=== PATIENT | female | born 1955 | race Caucasian/White ===

== ENCOUNTER 2018-12-24 01:06 | Inpatient (IN) | payer MEDICARE ==
[~2018-12-24] VITALS: Ht 162.6 cm; Wt 107.7 kg
[~2018-12-24 01:06] MED LIST: LEVO125T PO; MAGN420T PO; METO25TA35 PO; QUET25TA5 PO
--- NOTE | 2018-12-24 01:21 | NUR ---
PT BIB EMS WITH C/O UNRESPONSIVE AT HOME, EMS FOUND PT ALOC BUT BECAME A AND O X4 WITH THEIR O2, PT HAVING PROBLEMS WITH O2 CONCENTRATOR, PT IS A AND O X 4 AND TALKING IN FULL SENTENCES
[2018-12-24] MEDS ORDERED: ALBUTEROL/IPRATROPIUM 2.5MG/0.5MG, 3 ML NPPB ONE (01:30)
[2018-12-24] MEDS ORDERED: ALBUTEROL SULFATE 2.5 MG/3 ML NPPB ONE (01:30)
--- NOTE | 2018-12-24 01:30 | NUR ---
PT MOVED TO T 4 AND PLACED ON BI PAP PER MD REQUEST
[2018-12-24] MEDS ORDERED: ALBUTEROL/IPRATROPIUM 2.5MG/0.5MG, 3 ML ONE (01:37)
[2018-12-24] MEDS ORDERED: ALBU10PO INH (01:48)
[2018-12-24] MEDS ORDERED: AMOX-291 PO (01:48)
[2018-12-24] MEDS ORDERED: DICL1KIT14 TP (01:49)
[2018-12-24 01:50] LABS: MEAN CORPUSCULAR HEMOGLOBIN 37.3 pg (27.0-34.8); MEAN CORPUSCULAR HGB CONC 33.7 g/dL (32.4-35.8); MEAN CORPUSCULAR VOLUME 110.4 fL (80-100); MEAN PLATELET VOLUME 8.4 fL (7.4-10.4); PLATELET COUNT 133 x10^3/uL (130-400); RED BLOOD COUNT 3.13 x10^6/uL (3.82-5.3); RED CELL DISTRIBUTION WIDTH 17.1 % (9.6-15.2)
[2018-12-24] MEDS ORDERED: FURO40SO5 PO (01:51)
[2018-12-24] MEDS ORDERED: SERT-177 PO (01:53)
[2018-12-24] MEDS ORDERED: SPIR25TA5 PO (01:54)
[2018-12-24] MEDS ORDERED: TIOT18CA INH (01:57)
--- NOTE | 2018-12-24 02:00 | NUR ---
pt resting in nad tolerating bi pap well
[2018-12-24 02:09] LABS: ALANINE AMINOTRANSFERASE 12 U/L (12-78); ALBUMIN 2.7 g/dL (3.4-5.0); ALKALINE PHOSPHATASE 88 U/L (45-117); ANION GAP 11 mmol/L (5-15); BILIRUBIN,TOTAL 0.9 mg/dL (0.2-1.0); CALCIUM 9.4 mg/dL (8.5-10.1); CHLORIDE 91 mmol/L (98-107); CREATININE 1.21 mg/dL (0.55-1.02); TOTAL PROTEIN 6.9 g/dL (6.4-8.2); TROPONIN I 0.017 ng/mL (0.000-0.045)
[2018-12-24 02:10] LABS: BASOPHILS # (AUTO) 0.04 x10^3/uL (0-0.1); BASOPHILS % (AUTO) 1 % (0-1); EOSINOPHILS # (AUTO) 0.06 x10^3/uL (0-0.4); EOSINOPHILS % (AUTO) 1 % (1-7); LYMPHOCYTES # (AUTO) 0.29 x10^3/uL (1-3.4); LYMPHOCYTES % (AUTO) 5 % (22-44); MD SCAN; MONOCYTES # (AUTO) 0.57 x10^3/uL (0.2-0.8); MONOCYTES % (AUTO) 9 % (2-9); NEUTROPHILS # (AUTO) 5.33 x10^3/uL (1.8-6.8); NEUTROPHILS % (AUTO) 85 % (42-75)
[2018-12-24] MEDS ORDERED: LINEZOLID PMX 600MG/300ML 300 ML IV SCH ×2 (02:30→04:00)
[2018-12-24] MEDS ORDERED: methylPREDNISolone SOD SUCC 125 MG/2 ML IVPush SCH (02:30)
[2018-12-24] MEDS ORDERED: FUROSEMIDE 40 MG/4 ML IV ONE (02:30)
[2018-12-24] MEDS ORDERED: CEFEPIME 2 GM in DEXTROSE 5% 100 ML IV ONE (02:30)
[2018-12-24] MEDS ORDERED: POTASSIUM CHLORIDE 20 MEQ in SODIUM CHLORIDE 0.9% 250 ML IV ONE (02:30)
[2018-12-24] MEDS ORDERED: methylPREDNISolone SOD SUCC 125 MG/2 ML ONE (02:31)
[2018-12-24] MEDS ORDERED: FUROSEMIDE 40 MG/4 ML ONE (02:31)
--- NOTE | 2018-12-24 03:29 | NUR ---
changed pt for stool placed purwick to suction meds per oct in nad
[2018-12-24] MEDS ORDERED: LIDOCAINE-MPF 1%, 2ML ENDO PRN (03:30)
[2018-12-24] MEDS ORDERED: LACTULOSE 20 GM/30 ML UDC NG PRN (03:30)
[2018-12-24] MEDS ORDERED: PHARMACY MAY ADJ FOR RENAL FX MC SCH (03:30)
[2018-12-24] MEDS ORDERED: BISACODYL 10 MG SUPP PR PRN (03:30)
[2018-12-24] MEDS ORDERED: SENNA 176 MG/5 ML ORAL SOL NG PRN (03:30)
[2018-12-24] MEDS ORDERED: FENTANYL PF 100 MCG/2ML IVPush PRN (03:30)
[2018-12-24] MEDS ORDERED: ACETAMINOPHEN 325 MG TABLET PO PRN (03:30)
[2018-12-24] MEDS ORDERED: SENNA/DOCUSATE TABLET NG PRN (03:30)
[2018-12-24] MEDS ORDERED: HEPARIN 5,000 UNITS/ML, 1ML SQ SCH (03:30)
[2018-12-24] MEDS: ALBUTEROL/IPRATROPIUM 2.5MG/0.5MG, 3 ML INLINE SCH ×6 (03:30→22:25)
[2018-12-24] MEDS ORDERED: hydrALAzine 20 MG/ML, 1ML IVPush PRN (03:30)
[2018-12-24] MEDS ORDERED: POLYETHYLENE GLYCOL 17 GM PACKET PO PRN (03:30)
--- NOTE | 2018-12-24 03:30 | NUR ---
awaiting admit bed
[2018-12-24 03:59] LABS: INTERNATIONAL NORMALIZED RATIO 1.09 (0.93-1.1); PROTHROMBIN TIME 11.4 Seconds (9.6-11.5)
[2018-12-24] MEDS ORDERED: PIPERACILLIN/TAZO/PMX 3.375GM 50 ML IV SCH (04:00)
[2018-12-24 04:04] LABS: TROPONIN I 0.087 ng/mL (0.000-0.045)
--- NOTE | 2018-12-24 04:06 | NUR ---
report to [facility] chun to icu with tech
[2018-12-24 04:26] LABS: HEMOGLOBIN A1C 5.2 % (4.2-6.3)
[2018-12-24 04:27] LABS: FREE T4 (FREE THYROXINE) 1.43 ng/dL (0.76-1.46)
[2018-12-24] MEDS ORDERED: IPRATROPIUM 0.5 MG/2.5 ML INHA NPPB SCH (06:00)
[2018-12-24] MEDS: BUDESONIDE 0.5 MG/2 ML INHA NPPB SCH ×2 (06:37→18:52)
[2018-12-24] MEDS: HEPARIN 5,000 UNITS/ML, 1ML SQ SCH ×3 (06:41→21:03)
[2018-12-24] MEDS: LEVOTHYROXINE 125 MCG TABLET PO SCH (06:41)
[2018-12-24 06:42] LABS: FOLATE LEVEL > 20.0 ng/mL (3.1-17.5)
[2018-12-24] MEDS: SODIUM CHLORIDE 0.9% 1,000 ML IV SCH (06:42)
[2018-12-24] MEDS: FAMOTIDINE 20 MG/2 ML IV SCH ×2 (07:30→19:48)
[2018-12-24] MEDS: SPIRONOLACTONE 25 MG TABLET PO SCH (07:30)
[2018-12-24] MEDS: FUROSEMIDE 40 MG/4 ML IV SCH ×2 (07:30→17:37)
[2018-12-24] MEDS: METOPROLOL TARTRATE 25 MG TABLET PO SCH ×2 (07:31→21:03)
[2018-12-24] MEDS: SERTRALINE 50MG TABLET PO SCH (07:40)
[2018-12-24] MEDS ORDERED: MUPIROCIN OINT 2%, 22GM TP SCH (09:00)
[2018-12-24] MEDS: CEFEPIME 1 GM in DEXTROSE 5% 50 ML IV SCH ×2 (10:03→19:47)
[2018-12-24] MEDS: methylPREDNISolone SOD SUCC 125 MG/2 ML IVPush SCH ×2 (10:03→17:37)
[2018-12-24 11:10] LABS: TROPONIN I 0.183 ng/mL (0.000-0.045)
[2018-12-24] MEDS: NEOSPORIN OINT, 15GM TP SCH ×2 (11:49→21:04)
[2018-12-24] MEDS: LINEZOLID PMX 600MG/300ML 300 ML IV SCH (15:23)
[2018-12-24] MEDS ORDERED: POTASSIUM CHLORIDE 40 MEQ in SODIUM CHLORIDE 0.9% 500 ML IV ONE (16:30)
[2018-12-24] MEDS ORDERED: POTASSIUM CHLORIDE 20 MEQ TAB.ER.PRT ONE (17:31)
[2018-12-24] MEDS ORDERED: POTASSIUM CHLORIDE 20 MEQ TAB.ER.PRT PO ONE (18:00)
[2018-12-25] MEDS: methylPREDNISolone SOD SUCC 125 MG/2 ML IVPush SCH ×3 (02:04→18:09)
[2018-12-25] MEDS: ALBUTEROL/IPRATROPIUM 2.5MG/0.5MG, 3 ML INLINE SCH ×6 (02:29→22:00)
[2018-12-25] MEDS: LINEZOLID PMX 600MG/300ML 300 ML IV SCH ×2 (03:23→16:00)
[2018-12-25 04:00] VITALS: BP 130/69
[2018-12-25] MEDS: CEFEPIME 1 GM in DEXTROSE 5% 50 ML IV SCH ×3 (05:33→19:48)
[2018-12-25 05:59] LABS: MEAN CORPUSCULAR HEMOGLOBIN 37.4 pg (27.0-34.8); MEAN CORPUSCULAR VOLUME 109.9 fL (80-100); MEAN PLATELET VOLUME 8.8 fL (7.4-10.4); PLATELET COUNT 154 x10^3/uL (130-400); RED BLOOD COUNT 2.81 x10^6/uL (3.82-5.3); RED CELL DISTRIBUTION WIDTH 16.9 % (9.6-15.2)
[2018-12-25] MEDS: HEPARIN 5,000 UNITS/ML, 1ML SQ SCH ×3 (06:05→20:41)
[2018-12-25] MEDS: LEVOTHYROXINE 125 MCG TABLET PO SCH (06:05)
[2018-12-25 06:09] LABS: ALANINE AMINOTRANSFERASE 11 U/L (12-78); ALBUMIN 2.6 g/dL (3.4-5.0); ANION GAP 7 mmol/L (5-15); CALCIUM 8.6 mg/dL (8.5-10.1); CHLORIDE 91 mmol/L (98-107); CREATININE 1.39 mg/dL (0.55-1.02)
[2018-12-25 06:23] LABS: BASOPHILS # (AUTO) 0.15 x10^3/uL (0-0.1); BASOPHILS % (AUTO) 3 % (0-1); EOSINOPHILS % (AUTO) 0 % (1-7); LYMPHOCYTES # (AUTO) 0.13 x10^3/uL (1-3.4); LYMPHOCYTES % (AUTO) 3 % (22-44); MD SCAN; MONOCYTES # (AUTO) 0.15 x10^3/uL (0.2-0.8); MONOCYTES % (AUTO) 3 % (2-9); NEUTROPHILS # (AUTO) 4.45 x10^3/uL (1.8-6.8); NEUTROPHILS % (AUTO) 91 % (42-75)
[2018-12-25 06:25] LABS: ALKALINE PHOSPHATASE 72 U/L (45-117); BILIRUBIN,TOTAL 0.5 mg/dL (0.2-1.0); TOTAL PROTEIN 6.5 g/dL (6.4-8.2)
[2018-12-25] MEDS: SODIUM CHLORIDE 0.9% 1,000 ML IV SCH (08:00)
[2018-12-25] MEDS: FAMOTIDINE 20 MG/2 ML IV SCH ×2 (08:37→19:48)
[2018-12-25] MEDS: SERTRALINE 50MG TABLET PO SCH (08:37)
[2018-12-25] MEDS: SPIRONOLACTONE 25 MG TABLET PO SCH (08:37)
[2018-12-25] MEDS: FUROSEMIDE 40 MG/4 ML IV SCH ×2 (08:37→16:30)
[2018-12-25] MEDS: METOPROLOL TARTRATE 25 MG TABLET PO SCH ×2 (08:38→20:40)
[2018-12-25] MEDS ORDERED: MAGNESIUM SULFATE IN WATER 50 ML IVPB ONE (09:00)
[2018-12-25] MEDS: BUDESONIDE 0.5 MG/2 ML INHA NPPB SCH ×2 (09:00→22:00)
[2018-12-25] MEDS: POTASSIUM CHLORIDE 10% 20 MEQ/15 ML UDC PO SCH ×3 (09:43→20:44)
[2018-12-25 11:32] LABS: CLOSTRIDIUM DIFFICILE ANTIGEN NEGATIVE; CLOSTRIDIUM DIFFICILE TOXIN NEGATIVE (Negative)
[2018-12-25] MEDS: NEOSPORIN OINT, 15GM TP SCH ×2 (11:46→20:41)
[2018-12-25] MEDS ORDERED: QUETIAPINE 25MG TABLET ONE (22:16)
[2018-12-25] MEDS: QUETIAPINE 25MG TABLET PO SCH (22:17)
[2018-12-25] MEDS ORDERED: LORazepam 2 MG/ML, 1ML IVPush PRN (22:30)
[2018-12-26] MEDS: methylPREDNISolone SOD SUCC 125 MG/2 ML IVPush SCH ×3 (02:00→19:33)
[2018-12-26] MEDS: LINEZOLID PMX 600MG/300ML 300 ML IV SCH ×2 (02:31→15:05)
[2018-12-26 04:43] LABS: ANION GAP 8 mmol/L (5-15); CALCIUM 8.9 mg/dL (8.5-10.1); CHLORIDE 92 mmol/L (98-107); CREATININE 1.61 mg/dL (0.55-1.02)
[2018-12-26 04:48] VITALS: BP 105/54
[2018-12-26] MEDS: CEFEPIME 1 GM in DEXTROSE 5% 50 ML IV SCH ×3 (04:59→23:18)
[2018-12-26] MEDS: LEVOTHYROXINE 125 MCG TABLET PO SCH (05:39)
[2018-12-26] MEDS: HEPARIN 5,000 UNITS/ML, 1ML SQ SCH ×3 (05:39→21:13)
[2018-12-26 05:57] LABS: MEAN CORPUSCULAR HEMOGLOBIN 37.2 pg (27.0-34.8); MEAN CORPUSCULAR HGB CONC 33.8 g/dL (32.4-35.8); RED CELL DISTRIBUTION WIDTH 16.7 % (9.6-15.2)
[2018-12-26 05:59] LABS: MD YES
[2018-12-26 06:02] LABS: BAND#(MANUAL) 0.26 x10^3/uL; BANDS%(MANUAL) 4 % (0-7); LYMPH#(MANUAL) 0.19 x10^3/uL (1-3.4); LYMPHS% (MANUAL) 3 % (22-44); METAMYELOCYTES# (MANUAL) 0.06 x10^3/uL (0-0); METAMYELOCYTES% (MANUAL) 1 % (0-1); MONOS#(MANUAL) 0.13 x10^3/uL (0.3-2.7); MONOS% (MANUAL) 2 % (2-9); MYELOCYTES# (MANUAL) 0.06 x10^3/uL (0-0); MYELOCYTES% (MANUAL) 1 % (0-0); SEGS% (MANUAL) 89 % (42-75)
[2018-12-26 06:03] LABS: PMNS WITH VACUOLES 1+; TOXIC GRAN 2+
[2018-12-26 06:04] LABS: <PLATELET ESTIMATE> ADEQUATE; <PLT MORPHOLOGY> NORMAL PLT MORPH; ANISOCYTOSIS 1+; OVALOCYTES 1+; SCHISTOCYTES 1+; SPHEROCYTES 1+
[2018-12-26 06:05] LABS: PLATELET COUNT 134 x10^3/uL (130-400)
[2018-12-26] MEDS: ALBUTEROL/IPRATROPIUM 2.5MG/0.5MG, 3 ML INLINE SCH ×5 (07:34→23:25)
[2018-12-26] MEDS: BUDESONIDE 0.5 MG/2 ML INHA NPPB SCH ×2 (07:34→23:25)
[2018-12-26] MEDS: FUROSEMIDE 40 MG/4 ML IV SCH (08:46)
[2018-12-26] MEDS: FAMOTIDINE 20 MG/2 ML IV SCH (08:46)
[2018-12-26] MEDS: METOPROLOL TARTRATE 25 MG TABLET PO SCH ×2 (08:47→21:07)
[2018-12-26] MEDS: SERTRALINE 50MG TABLET PO SCH (08:47)
[2018-12-26] MEDS: SPIRONOLACTONE 25 MG TABLET PO SCH (08:47)
[2018-12-26] MEDS: FUROSEMIDE 20 MG TABLET PO SCH ×3 (09:00→21:06)
[2018-12-26] MEDS: POTASSIUM CHLORIDE 10% 20 MEQ/15 ML UDC PO SCH ×3 (10:23→21:00)
[2018-12-26] MEDS: NEOSPORIN OINT, 15GM TP SCH ×2 (10:24→21:13)
[2018-12-26] MEDS: HALOPERIDOL 5 MG TABLET PO SCH ×3 (10:24→21:07)
[2018-12-26] MEDS ORDERED: POTASSIUM CHLORIDE 20 MEQ TAB.ER.PRT ONE (20:31)
[2018-12-26] MEDS ORDERED: FAMOTIDINE 20 MG TABLET PO SCH (21:00)
[2018-12-26] MEDS: FAMOTIDINE 20 MG TABLET PO SCH (21:07)
[2018-12-26] MEDS: QUETIAPINE 25MG TABLET PO SCH (21:08)
[2018-12-27] MEDS: methylPREDNISolone SOD SUCC 125 MG/2 ML IVPush SCH ×3 (01:55→16:25)
[2018-12-27] MEDS: LINEZOLID PMX 600MG/300ML 300 ML IV SCH ×2 (02:16→14:20)
[2018-12-27] MEDS: FUROSEMIDE 20 MG TABLET PO SCH ×4 (03:16→21:09)
[2018-12-27] MEDS: HALOPERIDOL 5 MG TABLET PO SCH (03:17)
[2018-12-27 04:00] VITALS: BP 116/62
[2018-12-27 04:36] LABS: MEAN CORPUSCULAR HEMOGLOBIN 37.3 pg (27.0-34.8); MEAN CORPUSCULAR HGB CONC 33.7 g/dL (32.4-35.8); MEAN CORPUSCULAR VOLUME 110.8 fL (80-100); MEAN PLATELET VOLUME 8.8 fL (7.4-10.4); PLATELET COUNT 144 x10^3/uL (130-400); RED BLOOD COUNT 2.64 x10^6/uL (3.82-5.3); RED CELL DISTRIBUTION WIDTH 16.6 % (9.6-15.2)
[2018-12-27 04:46] LABS: ANION GAP 7 mmol/L (5-15); CALCIUM 8.3 mg/dL (8.5-10.1); CHLORIDE 92 mmol/L (98-107); CREATININE 1.85 mg/dL (0.55-1.02); TRIGLYCERIDES 132 mg/dL (50-200)
[2018-12-27 05:00] LABS: BASOPHILS # (AUTO) 0.14 x10^3/uL (0-0.1); BASOPHILS % (AUTO) 3 % (0-1); EOSINOPHILS % (AUTO) 0 % (1-7); LYMPHOCYTES # (AUTO) 0.17 x10^3/uL (1-3.4); LYMPHOCYTES % (AUTO) 3 % (22-44); MD SCAN; MONOCYTES # (AUTO) 0.21 x10^3/uL (0.2-0.8); MONOCYTES % (AUTO) 4 % (2-9); NEUTROPHILS # (AUTO) 5.26 x10^3/uL (1.8-6.8); NEUTROPHILS % (AUTO) 91 % (42-75)
[2018-12-27] MEDS: LEVOTHYROXINE 125 MCG TABLET PO SCH (05:10)
[2018-12-27] MEDS: HEPARIN 5,000 UNITS/ML, 1ML SQ SCH ×3 (05:10→22:05)
[2018-12-27] MEDS: BUDESONIDE 0.5 MG/2 ML INHA NPPB SCH ×2 (06:55→18:00)
[2018-12-27] MEDS: ALBUTEROL/IPRATROPIUM 2.5MG/0.5MG, 3 ML INLINE SCH ×5 (06:55→21:44)
[2018-12-27] MEDS ORDERED: QUETIAPINE 25MG TABLET PO PRN (09:00)
[2018-12-27] MEDS ORDERED: POTASSIUM CHLORIDE 10 MEQ TABLET.ER ONE (09:15)
[2018-12-27] MEDS: NEOSPORIN OINT, 15GM TP SCH ×2 (09:22→21:10)
[2018-12-27] MEDS: POTASSIUM CHLORIDE 10% 20 MEQ/15 ML UDC PO SCH ×3 (09:22→21:09)
[2018-12-27] MEDS: SERTRALINE 50MG TABLET PO SCH (09:23)
[2018-12-27] MEDS: SPIRONOLACTONE 25 MG TABLET PO SCH (09:23)
[2018-12-27] MEDS: METOPROLOL TARTRATE 25 MG TABLET PO SCH ×2 (09:23→21:10)
[2018-12-27] MEDS: CEFEPIME 1 GM in DEXTROSE 5% 50 ML IV SCH (11:46)
[2018-12-27] MEDS: FAMOTIDINE 20 MG TABLET PO SCH (21:09)
[2018-12-28] MEDS: CEFEPIME 1 GM in DEXTROSE 5% 50 ML IV SCH (00:11)
[2018-12-28] MEDS: methylPREDNISolone SOD SUCC 125 MG/2 ML IVPush SCH ×2 (02:40→10:00)
[2018-12-28] MEDS: LINEZOLID PMX 600MG/300ML 300 ML IV SCH (02:41)
[2018-12-28] MEDS: FUROSEMIDE 20 MG TABLET PO SCH (02:41)
[2018-12-28 04:00] VITALS: BP 123/64
[2018-12-28 04:58] LABS: MEAN CORPUSCULAR HGB CONC 33.5 g/dL (32.4-35.8); MEAN CORPUSCULAR VOLUME 110.4 fL (80-100); MEAN PLATELET VOLUME 8.7 fL (7.4-10.4); PLATELET COUNT 170 x10^3/uL (130-400); RED BLOOD COUNT 2.74 x10^6/uL (3.82-5.3)
[2018-12-28 05:03] LABS: ANION GAP 7 mmol/L (5-15); CALCIUM 8.9 mg/dL (8.5-10.1); CHLORIDE 93 mmol/L (98-107)
[2018-12-28 05:05] LABS: CREATININE 2.32 mg/dL (0.55-1.02)
[2018-12-28 05:55] LABS: BASOPHILS % (AUTO) 0 % (0-1); EOSINOPHILS # (AUTO) 0.02 x10^3/uL (0-0.4); EOSINOPHILS % (AUTO) 0 % (1-7); LYMPHOCYTES # (AUTO) 0.21 x10^3/uL (1-3.4); LYMPHOCYTES % (AUTO) 3 % (22-44); MD SCAN; MONOCYTES # (AUTO) 0.21 x10^3/uL (0.2-0.8); MONOCYTES % (AUTO) 3 % (2-9); NEUTROPHILS # (AUTO) 6.67 x10^3/uL (1.8-6.8); NEUTROPHILS % (AUTO) 94 % (42-75)
[2018-12-28] MEDS: ALBUTEROL/IPRATROPIUM 2.5MG/0.5MG, 3 ML INLINE SCH (06:00)
[2018-12-28] MEDS: HEPARIN 5,000 UNITS/ML, 1ML SQ SCH ×3 (06:08→21:36)
[2018-12-28] MEDS: LEVOTHYROXINE 125 MCG TABLET PO SCH (06:08)
[2018-12-28] MEDS ORDERED: PHARMACY MAY ADJ FOR RENAL FX MC PRN (08:30)
[2018-12-28] MEDS: BUDESONIDE 0.5 MG/2 ML INHA NPPB SCH ×2 (09:00→19:10)
[2018-12-28] MEDS: METOPROLOL TARTRATE 25 MG TABLET PO SCH (09:05)
[2018-12-28] MEDS: SERTRALINE 50MG TABLET PO SCH (09:05)
[2018-12-28] MEDS: AMPICILLIN/SULBACTAM 3 GM in SODIUM CHLORIDE 0.9% 100 ML IV SCH ×2 (09:05→21:35)
[2018-12-28] MEDS: NEOSPORIN OINT, 15GM TP SCH ×2 (09:05→21:36)
[2018-12-28] MEDS ORDERED: FUROSEMIDE 20 MG/2 ML IV ONE (10:30)
[2018-12-28] MEDS: ALBUTEROL/IPRATROPIUM 2.5MG/0.5MG, 3 ML NPPB SCH ×3 (11:00→19:10)
[2018-12-28] MEDS: methylPREDNISolone SOD SUCC 40 MG/ML IVPush SCH ×2 (11:27→19:41)
[2018-12-28 14:45] VITALS: BP 130/83
[2018-12-28 20:03] VITALS: BP 119/75
[2018-12-28] MEDS: FAMOTIDINE 20 MG TABLET PO SCH (21:35)
[2018-12-29 01:30] VITALS: BP 130/77
[2018-12-29] MEDS: methylPREDNISolone SOD SUCC 40 MG/ML IVPush SCH ×3 (03:26→19:34)
[2018-12-29 04:49] LABS: ANION GAP 8 mmol/L (5-15); CALCIUM 9.2 mg/dL (8.5-10.1); CHLORIDE 94 mmol/L (98-107); CREATININE 2.21 mg/dL (0.55-1.02)
[2018-12-29 04:55] LABS: MEAN CORPUSCULAR HEMOGLOBIN 37.2 pg (27.0-34.8); MEAN CORPUSCULAR HGB CONC 33.9 g/dL (32.4-35.8); MEAN CORPUSCULAR VOLUME 109.8 fL (80-100); PLATELET COUNT 154 x10^3/uL (130-400); RED BLOOD COUNT 2.81 x10^6/uL (3.82-5.3); RED CELL DISTRIBUTION WIDTH 16.9 % (9.6-15.2)
[2018-12-29] MEDS: LEVOTHYROXINE 125 MCG TABLET PO SCH (05:28)
[2018-12-29] MEDS: HEPARIN 5,000 UNITS/ML, 1ML SQ SCH ×3 (05:28→22:00)
[2018-12-29 06:03] LABS: BASOPHILS % (AUTO) 0 % (0-1); EOSINOPHILS # (AUTO) 0.02 x10^3/uL (0-0.4); EOSINOPHILS % (AUTO) 0 % (1-7); LYMPHOCYTES # (AUTO) 0.23 x10^3/uL (1-3.4); LYMPHOCYTES % (AUTO) 3 % (22-44); MONOCYTES # (AUTO) 0.07 x10^3/uL (0.2-0.8); MONOCYTES % (AUTO) 1 % (2-9); NEUTROPHILS # (AUTO) 7.25 x10^3/uL (1.8-6.8); NEUTROPHILS % (AUTO) 96 % (42-75)
[2018-12-29 06:32] LABS: MD SCAN
[2018-12-29] MEDS: ALBUTEROL/IPRATROPIUM 2.5MG/0.5MG, 3 ML NPPB SCH ×4 (07:17→20:00)
[2018-12-29] MEDS: BUDESONIDE 0.5 MG/2 ML INHA NPPB SCH ×2 (07:18→20:00)
[2018-12-29 07:29] VITALS: BP 137/81
[2018-12-29] MEDS: AMPICILLIN/SULBACTAM 3 GM in SODIUM CHLORIDE 0.9% 100 ML IV SCH ×2 (08:30→20:44)
[2018-12-29] MEDS: SERTRALINE 50MG TABLET PO SCH (08:30)
[2018-12-29] MEDS: NEOSPORIN OINT, 15GM TP SCH ×2 (08:30→20:45)
[2018-12-29 12:42] VITALS: BP 141/82
[2018-12-29] MEDS ORDERED: FUROSEMIDE 40 MG/4 ML IV ONE (15:00)
[2018-12-29 19:10] VITALS: BP 133/71
[2018-12-29] MEDS: FAMOTIDINE 20 MG TABLET PO SCH (20:44)
[2018-12-30 01:05] VITALS: BP 132/76
[2018-12-30] MEDS: methylPREDNISolone SOD SUCC 40 MG/ML IVPush SCH ×4 (03:20→20:00)
[2018-12-30] MEDS: LEVOTHYROXINE 125 MCG TABLET PO SCH (05:15)
[2018-12-30] MEDS: HEPARIN 5,000 UNITS/ML, 1ML SQ SCH ×3 (05:15→21:34)
[2018-12-30 05:26] LABS: ANION GAP 7 mmol/L (5-15); CALCIUM 9.4 mg/dL (8.5-10.1); CHLORIDE 96 mmol/L (98-107); CREATININE 2.11 mg/dL (0.55-1.02); TRIGLYCERIDES 129 mg/dL (50-200)
[2018-12-30 05:40] LABS: MEAN CORPUSCULAR HEMOGLOBIN 37.5 pg (27.0-34.8); MEAN CORPUSCULAR HGB CONC 33.8 g/dL (32.4-35.8); MEAN CORPUSCULAR VOLUME 110.8 fL (80-100); MEAN PLATELET VOLUME 8.9 fL (7.4-10.4); PLATELET COUNT 156 x10^3/uL (130-400); RED BLOOD COUNT 2.74 x10^6/uL (3.82-5.3); RED CELL DISTRIBUTION WIDTH 17.2 % (9.6-15.2)
[2018-12-30 06:29] LABS: BASOPHILS % (AUTO) 0 % (0-1); EOSINOPHILS # (AUTO) 0.01 x10^3/uL (0-0.4); EOSINOPHILS % (AUTO) 0 % (1-7); LYMPHOCYTES # (AUTO) 0.22 x10^3/uL (1-3.4); LYMPHOCYTES % (AUTO) 3 % (22-44); MD SCAN; MONOCYTES # (AUTO) 0.31 x10^3/uL (0.2-0.8); MONOCYTES % (AUTO) 4 % (2-9); NEUTROPHILS # (AUTO) 7.73 x10^3/uL (1.8-6.8); NEUTROPHILS % (AUTO) 93 % (42-75)
[2018-12-30] MEDS: BUDESONIDE 0.5 MG/2 ML INHA NPPB SCH ×2 (06:45→21:00)
[2018-12-30] MEDS: ALBUTEROL/IPRATROPIUM 2.5MG/0.5MG, 3 ML NPPB SCH ×4 (06:45→20:00)
[2018-12-30] MEDS: AMPICILLIN/SULBACTAM 3 GM in SODIUM CHLORIDE 0.9% 100 ML IV SCH ×3 (08:44→23:58)
[2018-12-30 09:01] VITALS: BP 158/90
[2018-12-30] MEDS: SERTRALINE 50MG TABLET PO SCH (09:13)
[2018-12-30] MEDS: NEOSPORIN OINT, 15GM TP SCH ×2 (09:13→20:00)
[2018-12-30 17:30] VITALS: BP 153/83
[2018-12-30 19:49] VITALS: BP 146/80
[2018-12-30] MEDS: FAMOTIDINE 20 MG TABLET PO SCH (20:00)
[2018-12-31 02:31] VITALS: BP 157/87
[2018-12-31] MEDS: methylPREDNISolone SOD SUCC 40 MG/ML IVPush SCH (03:31)
[2018-12-31] MEDS: LEVOTHYROXINE 125 MCG TABLET PO SCH (05:54)
[2018-12-31] MEDS: HEPARIN 5,000 UNITS/ML, 1ML SQ SCH ×3 (05:54→20:39)
[2018-12-31 06:02] LABS: MEAN CORPUSCULAR HEMOGLOBIN 37.7 pg (27.0-34.8); MEAN CORPUSCULAR HGB CONC 33.9 g/dL (32.4-35.8); MEAN CORPUSCULAR VOLUME 111.1 fL (80-100); MEAN PLATELET VOLUME 8.6 fL (7.4-10.4); PLATELET COUNT 140 x10^3/uL (130-400); RED BLOOD COUNT 2.81 x10^6/uL (3.82-5.3); RED CELL DISTRIBUTION WIDTH 17.2 % (9.6-15.2)
[2018-12-31 06:08] LABS: ANION GAP 7 mmol/L (5-15); CALCIUM 9.5 mg/dL (8.5-10.1); CHLORIDE 98 mmol/L (98-107); CREATININE 1.85 mg/dL (0.55-1.02)
[2018-12-31 06:26] LABS: BASOPHILS # (AUTO) 0.23 x10^3/uL (0-0.1); BASOPHILS % (AUTO) 2 % (0-1); EOSINOPHILS % (AUTO) 1 % (1-7); LYMPHOCYTES # (AUTO) 0.27 x10^3/uL (1-3.4); LYMPHOCYTES % (AUTO) 2 % (22-44); MD SCAN; MONOCYTES # (AUTO) 0.74 x10^3/uL (0.2-0.8); MONOCYTES % (AUTO) 5 % (2-9); NEUTROPHILS # (AUTO) 13.58 x10^3/uL (1.8-6.8); NEUTROPHILS % (AUTO) 91 % (42-75)
[2018-12-31] MEDS: BUDESONIDE 0.5 MG/2 ML INHA NPPB SCH ×2 (07:25→20:04)
[2018-12-31] MEDS: ALBUTEROL/IPRATROPIUM 2.5MG/0.5MG, 3 ML NPPB SCH ×4 (07:25→20:00)
[2018-12-31] MEDS: NEOSPORIN OINT, 15GM TP SCH ×2 (08:12→20:39)
[2018-12-31] MEDS: SERTRALINE 50MG TABLET PO SCH (08:12)
[2018-12-31] MEDS: AMPICILLIN/SULBACTAM 3 GM in SODIUM CHLORIDE 0.9% 100 ML IV SCH ×3 (08:12→23:48)
[2018-12-31 14:00] VITALS: BP 158/83
[2018-12-31 19:26] VITALS: BP 131/69
[2018-12-31] MEDS: FAMOTIDINE 20 MG TABLET PO SCH (20:39)
[2019-01-01 00:44] VITALS: BP 115/69
[2019-01-01 05:36] LABS: ANION GAP 6 mmol/L (5-15); CALCIUM 9.3 mg/dL (8.5-10.1); CHLORIDE 102 mmol/L (98-107)
[2019-01-01 05:37] LABS: CREATININE 1.62 mg/dL (0.55-1.02)
[2019-01-01 05:40] LABS: MEAN CORPUSCULAR HEMOGLOBIN 37.2 pg (27.0-34.8); MEAN CORPUSCULAR HGB CONC 33.8 g/dL (32.4-35.8); MEAN CORPUSCULAR VOLUME 109.9 fL (80-100); MEAN PLATELET VOLUME 8.7 fL (7.4-10.4); PLATELET COUNT 124 x10^3/uL (130-400); RED BLOOD COUNT 2.62 x10^6/uL (3.82-5.3); RED CELL DISTRIBUTION WIDTH 17.3 % (9.6-15.2)
[2019-01-01 06:07] LABS: MD SCAN
[2019-01-01 06:08] LABS: BASOPHILS # (AUTO) 0.05 x10^3/uL (0-0.1); BASOPHILS % (AUTO) 1 % (0-1); EOSINOPHILS # (AUTO) 0.17 x10^3/uL (0-0.4); EOSINOPHILS % (AUTO) 2 % (1-7); LYMPHOCYTES # (AUTO) 0.54 x10^3/uL (1-3.4); LYMPHOCYTES % (AUTO) 5 % (22-44); MONOCYTES # (AUTO) 0.89 x10^3/uL (0.2-0.8); MONOCYTES % (AUTO) 9 % (2-9); NEUTROPHILS # (AUTO) 8.36 x10^3/uL (1.8-6.8); NEUTROPHILS % (AUTO) 84 % (42-75)
[2019-01-01] MEDS: LEVOTHYROXINE 125 MCG TABLET PO SCH (06:12)
[2019-01-01] MEDS: HEPARIN 5,000 UNITS/ML, 1ML SQ SCH ×2 (06:12→14:00)
[2019-01-01] MEDS: BUDESONIDE 0.5 MG/2 ML INHA NPPB SCH (07:03)
[2019-01-01] MEDS: ALBUTEROL/IPRATROPIUM 2.5MG/0.5MG, 3 ML NPPB SCH ×2 (07:03→11:06)
[2019-01-01 07:31] VITALS: BP 138/80
[2019-01-01] MEDS: SERTRALINE 50MG TABLET PO SCH (08:13)
[2019-01-01] MEDS: AMPICILLIN/SULBACTAM 3 GM in SODIUM CHLORIDE 0.9% 100 ML IV SCH (08:13)
[2019-01-01] MEDS: NEOSPORIN OINT, 15GM TP SCH (08:15)
[2019-01-01] MEDS ORDERED: AMOX1TAB61 PO (10:22)
[2019-01-01] MEDS ORDERED: ACID1TAB3 PO (10:22)
[2019-01-01] MEDS ORDERED: PRED10TA PO (10:22)
[2019-01-01 12:54] VITALS: BP 141/81
[2019-01-01] MEDS ORDERED: AMPICILLIN/SULBACTAM 3 GM in SODIUM CHLORIDE 0.9% 100 ML IV SCH (14:00)
== END 2019-01-01 15:50 | disposition home or self-care (01) | DRG 871 ==
LOC: ED 01:56 → EDIP 03:28 → CCU 04:16 → 3NE 12-28 11:55
PROVIDERS: ADMIT Family Medicine; ATTEND Family Medicine
DX: A41.9 Sepsis, unspecified organism (principal); J18.9 Pneumonia, unspecified organism; J96.21 Acute and chronic respiratory failure with hypoxia; N17.0 Acute kidney failure with tubular necrosis; G93.41 Metabolic encephalopathy; I50.33 Acute on chronic diastolic (congestive) heart failure; J44.1 Chronic obstructive pulmonary disease with (acute) exacerbation; E46 Unspecified protein-calorie malnutrition; E87.1 Hypo-osmolality and hyponatremia; J44.0 Chronic obstructive pulmonary disease with (acute) lower respiratory infection; L03.113 Cellulitis of right upper limb; N17.9 Acute kidney failure, unspecified; Z68.41 Body mass index [BMI] 40.0-44.9, adult; I11.0 Hypertensive heart disease with heart failure; D53.9 Nutritional anemia, unspecified; E03.9 Hypothyroidism, unspecified; E66.9 Obesity, unspecified; E83.42 Hypomagnesemia; E87.5 Hyperkalemia; E87.6 Hypokalemia; F10.10 Alcohol abuse, uncomplicated; Z96.641 Presence of right artificial hip joint; Y95 Nosocomial condition; F17.200 Nicotine dependence, unspecified, uncomplicated; I08.1 Rheumatic disorders of both mitral and tricuspid valves; I27.20 Pulmonary hypertension, unspecified; I48.2 Chronic atrial fibrillation; Z99.3 Dependence on wheelchair; Z99.81 Dependence on supplemental oxygen; Z79.01 Long term (current) use of anticoagulants
CPT/HCPCS: 36415; 36600; 70450; 71045; 76770; 80048; 80053; 82140; 82607; 82746; 82803; 82962; 83036; 83605; 83735; 83880; 84100; 84145; 84439; 84443; 84478; 84484; 85025; 85610; 85730; 87040; 87081; 87324; 93005; 93306; 94640; 94660; G0378; J0295; J0692; J1644; J1940; J2020; J3480; J7613; J7620; J7626; J2920; J2930; J3490; J7030; J7050; J7512